=== PATIENT | female | born 1960 | race Caucasian/White ===

== ENCOUNTER 2017-10-13 07:22 | Day surgery (SDC) | payer BC ==
[2017-10-13] MEDS ORDERED: DIAZEPAM 5 MG TAB ONE (07:48)
[2017-10-13 07:51] VITALS: TEMP 98.6
[2017-10-13] MEDS ORDERED: BUPIVACAINE HCL 0.25% MPF 10 ML SOL INFIL ONE (07:53)
[2017-10-13] MEDS ORDERED: DEXAMETHASONE SOD PHOS PF 10 MG/ML SOL IJ ONE (07:53)
[2017-10-13 08:39] VITALS: BP 147/98; PULSE 76; RESP 16; O2SAT 99
== END 2017-10-13 08:55 | disposition home or self-care (01) ==
LOC: SURG 07:22
PROVIDERS: ATTEND Nurse Anesthetist, Certified Registered
DX: M54.16 Radiculopathy, lumbar region (principal)
CPT/HCPCS: A9270-GY; J1100